=== PATIENT | male | born 1950 | race Caucasian/White ===

== ENCOUNTER 2024-10-09 06:41 | Day surgery (SDC) | payer MEDICARE ==
[2024-10-09] VITALS (11 sets, daily range): BP systolic 99–129; BP diastolic 54–73; PULSE 63–82; RESP 10–16; TEMP 97.9; O2SAT 91–100
[~2024-10-09] VITALS: Ht 167.6 cm; Wt 72.0 kg
[2024-10-09] MEDS ORDERED: METO-384 PO (07:28)
[2024-10-09] MEDS ORDERED: BUDE10.7 INH (07:28)
[2024-10-09] MEDS ORDERED: FERR-116 PO (07:28)
[2024-10-09] MEDS ORDERED: ASPI-611 PO (07:28)
[2024-10-09] MEDS ORDERED: NIAC500C12 PO (07:28)
[2024-10-09] MEDS ORDERED: EMPA10TA PO (07:28)
[2024-10-09] MEDS ORDERED: LISI10TA27 PO (07:28)
[2024-10-09] MEDS ORDERED: SACU1TAB7 PO (07:28)
[2024-10-09] MEDS ORDERED: FURO40TA4 PO (07:28)
[2024-10-09] MEDS ORDERED: ALLO300T8 PO (07:28)
[2024-10-09] MEDS ORDERED: NITR0.4T51 SL (07:28)
[2024-10-09] MEDS ORDERED: ATOR20TA66 PO (07:28)
[2024-10-09] MEDS ORDERED: GABA-530 PO (07:28)
--- NOTE | 2024-10-09 07:35 | ELECTROCARDIOGRAPH REPORT ---
[facility] Test Date: 2024-10-09 Test Time: 07:34:29 Pat Name: NONA LUGO Department: [facility] Patient ID: [facility]-[id number] Room: Gender: M Senior Paralegal: EDGAR : 1950 Requested By: FRANKIE MCCRARY Order Number: [id number] Reading MD: Dr. DARLEEN Cobb Measurements Intervals [place] Rate: 63 P: 36 ND: 197 QRS: -63 QRSD: 139 T: 240 QT: 402 QTc: 412 Interpretive Statements Sinus rhythm Left bundle branch block Electronically Signed On 10-09-2024 15:19:[address] DARLENE Cobb Please click the below link to view image of tracing.
[2024-10-09] MEDS: sodium bicarbonate 1meq/ml syr 150 ML in dextrose 5%-water 1,000 ML IV ONE (08:14)
[2024-10-09] MEDS ORDERED: LIDOcaine 1% (10mg/ml) 2ml vial ONE (08:33)
[2024-10-09] MEDS ORDERED: fentaNYL/PF 50MCG/1 ML 2ML syringe ONE (08:34)
[2024-10-09] MEDS ORDERED: midazolam 1 mg/ML 2ml injection ONE ×2 (08:34→09:05)
[2024-10-09] MEDS ORDERED: nitroGLYCERIN 500mcg/5mL D5W 0 ML IV ONE (08:34)
[2024-10-09] MEDS ORDERED: heparin 1,000unit/ml 10ml vial 10 ML ONE (08:34)
[2024-10-09] MEDS ORDERED: iohexol 350 MG/ML 50ML vial IV ONE (08:35)
[2024-10-09 08:38] LABS: MEAN PLATELET VOLUME 7.1 FL (7.4-10.4); RED CELL DISTRIBUTION WIDTH 16.2 % (11.5-14.5)
[2024-10-09] MEDS ORDERED: verapamil 2.5 mg/ml inj IV ONE (08:38)
[2024-10-09 08:50] LABS: INR 1.1 INR
[2024-10-09] MEDS ORDERED: LIDOcaine 1% 30ml preserv. free vial ONE (08:52)
[2024-10-09 09:04] LABS: CREATININE 4.14 MG/DL (0.60-1.10); TOTAL CARBON DIOXIDE 16.3 MMOL/L (24-32); eCRCL 14 ML/MIN; eGFR 14 ML/MIN
[2024-10-09] MEDS ORDERED: phenylephrine 10mg/ml inj. ONE (09:18)
--- NOTE | 2024-10-09 10:55 | CARDIOLOGY REPORT ---
DATE OF SERVICE: 10/09/2024 DICTATING PHYSICIAN: FRANKIE MCCRARY DO CARDIAC CATHETERIZATION REPORT REFERRING PHYSICIAN: Regan Ruffin MD CLINICAL HISTORY: This patient is a 73-year-old patient who is status post 3-vessel CABG. He also has a moderate cardiomyopathy with a recently estimated EF of 35% to 40%. He has diabetes, chronic renal insufficiency, and there is also an element of aortic stenosis. He is being considered for MitraClip. PROCEDURES PERFORMED: * Right heart catheterization. * Left heart catheterization. * Left ventriculography. * Selective coronary arteriography. * Selective opacification of vein grafts. * Selective opacification of an internal mammary grafts. * Percutaneous arteriotomy closure (Mynx) and 75 minutes conscious sedation supervision. DESCRIPTION OF PROCEDURE: The patient was sedated with fentanyl and Versed. He was then prepared and draped in the usual manner. The right inguinal area was liberally infiltrated with 1% lidocaine using a micropuncture set and a Seldinger technique. An 8-Nauruan sheath was placed in the femoral vein and a 7-Nauruan sheath was placed in the common femoral artery. 3,000 units of heparin were given. Right heart catheterization was performed using a 7.5-Nauruan Phil Campbell-Obinna catheter. Cardiac output was determined using a thermal elution technique. Left heart catheterization and left ventriculography were performed using a 6-Nauruan pigtail catheter. Coronary arteriography was performed using 6-Nauruan #4 left and right Saturnino catheters. A saphenous vein leading to an LAD diagonal was opacified using the 6-Nauruan #4 right Saturnino catheter. A saphenous vein graft leading to the distal right coronary was opacified using a 6-Nauruan AR Mod catheter and a left internal mammary graft was opacified using a 6-Nauruan CHARO catheter. The arterial sheath was removed and hemostasis was achieved with a Mynx device. Direct pressure was applied to the venous access site. RESULTS: HEMODYNAMIC DATA: The right ventricular pressure was 23/3 mmHg. Pulmonary arterial pressure was 23/6 mmHg. Pulmonary capillary wedge pressure was 4 mmHg. Left ventricular end diastolic pressure was 2 mmHg. There was a 34 mm gradient across the aortic valve. During the right heart catheterization, cardiac output was determined to be 7.3 liters per minute with 3 recordings being all the same!. The calculated aortic valve area was 1.41 cm2. LEFT VENTRICULOGRAM: The left ventriculogram was technically satisfactory. The estimated ejection fraction was about 30%. Mitral regurgitation was estimated as being 2+. CORONARY ARTERIOGRAPHY: The coronary arteriograms were technically satisfactory. The patient appeared to have a left dominant system; however, there is a PDA emanating from the right coronary. LEFT MAIN CORONARY ARTERY: The left main was unobstrudted andbifurcated into the left anterior descending and circumflex coronary arteries. LEFT ANTERIOR DESCENDING CORONARY ARTERY: The LAD was occluded at its origin. CIRCUMFLEX CORONARY ARTERY: The circumflex was a large main stem vessel. There was a large bifurcated first obtuse marginal branch, a small inferior obtuse marginal, and 2 very small caliber posterolateral branches. There were no obstructive lesions in the circumflex coronary artery. RIGHT CORONARY ARTERY: The right coronary artery was extensively diseased from its origin down to an occlusion in the mid vessel. SELECTIVE OPACIFICATION AND BYPASS GRAFTS: A saphenous vein graft, leading to what appeared to be a bifurcated LAD diagonal, was patent. The diagonal itself was small-caliber in size, but there was good filling of the artery and there were no obstructive lesions in the vein graft or in the nez perce vessel beyond the distal anastomosis. A saphenous vein graft leading to the right coronary posterior descending branch was patent. There was what appeared to be a spasm or kink in an otherwise very smooth-appearing graft. The kink was near the origin of the vessel. There was no other suggestion of stenosis in this nor in the grafted nez perce vessel beyond the distal anastomosis. The left internal mammary artery was grafted to the mid LAD. There were no obstructive lesions in the graft or in the nez perce vessel beyond the distal anastomosis. CONCLUSIONS: 1. Normal right heart pressures. Pulmonary arterial pressure was 23/6 mmHg. 2. Cardiac output by thermal dilution technique was perfectly reproducible for 3 shots and was measured at 7.3 liters per minute. 3. There is a 34 mm peak gradient across the aortic valve. The calculated aortic valve area was 1.41 cm2. 4. Left ventricular function is markedly reduced. In the RIVERA projection, the ejection fraction was estimated to be about 30%. There was 2+ mitral regurgitation. 5. Old obstructive coronary artery disease manifested as a total occlusion of the proximal LAD and a 100% occlusion of the mid right coronary. 6. Saphenous vein grafts to an LAD diagonal and to the RCA, PDA are patent and without obstructive disease in the vein or in the distal vessels beyond the distal anastomosis. 7. Patent unobstructed SHEPARD graft to mid LAD with no obstructive disease in the grafted nez perce vessel beyond the distal anastomosis. RECOMMENDATIONS: Ongoing medical therapy. FRANKIE MCCRARY DO TID: [id number] RECEIPT: [id number] [facility]
[2024-10-09] MEDS ORDERED: HYDROcodone/acetaminophen 10/325mg tab PO PRN (11:15)
[2024-10-09] MEDS ORDERED: ondansetron/PF 4mg/2ml inj IV PRN (11:15)
[2024-10-09] MEDS ORDERED: HYDROcodone/acetaminophen 5mg/325mg tablet PO PRN (11:15)
== END 2024-10-09 13:45 | disposition home or self-care (01) ==
LOC: SSTAY O 06:41
PROVIDERS: ATTEND Internal Medicine Cardiovascular Disease
DX: I34.0 Nonrheumatic mitral (valve) insufficiency (principal); I44.7 Left bundle-branch block, unspecified; I25.10 Atherosclerotic heart disease of native coronary artery without angina pectoris; I13.0 Hypertensive heart and chronic kidney disease with heart failure and stage 1 through stage 4 chronic kidney disease, or unspecified chronic kidney disease; E11.22 Type 2 diabetes mellitus with diabetic chronic kidney disease; N18.9 Chronic kidney disease, unspecified; I50.9 Heart failure, unspecified; E78.5 Hyperlipidemia, unspecified; I42.9 Cardiomyopathy, unspecified; I35.0 Nonrheumatic aortic (valve) stenosis; Z95.1 Presence of aortocoronary bypass graft
CPT/HCPCS: 36415; 80053; 82948; 83735; 85025; 85610; 93005; 93461; 99152; 99153; A6258; C1725; C1751; C1760; C1769; C1894; J1644; J2003; J2250; J2371; J3010; J3490; J7030; J7070; Q0163; Q9967; Z7610